=== PATIENT | male | born 1995 | race Caucasian/White ===

== ENCOUNTER 2017-04-09 14:59 | Emergency (ER) | payer MEDICAID ==
[2017-04-09 15:01] VITALS: BP 143/68; PULSE 79; RESP 13; TEMP 98.5; O2SAT 98
--- NOTE | 2017-04-09 15:16 | PD ---
Physical Exam Time Seen by Provider: 15:15 Narrative 21 year old male presents for evaluation of burning with urination and urethral discharge for 2 days. Thinks he has a UTI. Reports being sexually active but utilizes condom prophylaxis. Denies abdominal pain, fever, or chills. no other symptoms Data Data Last Documented VS Vital Signs Date Time Temp Pulse Resp B/P (MAP) Pulse Ox O2 Delivery O2 Flow Rate FiO2 04/09/17 16:52 04/09/17 15:01 98.5 79 13 98 Orders Orders Urinalysis - C+S If Indicated (04/09/17 15:14) Gc And Chlamydia Pcr (04/09/17 15:14) Azithromycin Powd Pack (Zithromax Powd P (04/09/17 16:30) Ceftriaxone Inj (Rocephin Inj) (04/09/17 16:30) Lidocaine 1% Inj (50 Ml) (Xylocaine 1% I (04/09/17 16:30) Urine Culture (04/09/17 15:50) Labs Laboratory Tests Test 04/09/17 15:50 Urine Color YELLOW Urine Turbidity HAZY Urine pH 7.0 Urine Specific [place] 1.024 Urine Protein NEG mg/dL Urine Glucose (UA) NEG mg/dL Urine Ketones NEG mg/dL Urine Occult Blood NEG Urine Nitrite NEG Urine Bilirubin NEG Urine Urobilinogen LESS THAN 2.0 MG/DL Urine Leukocyte Esterase LARGE Urine RBC 3 /hpf Urine WBC 63 /hpf Urine Mucus FEW /lpf Microscopic Urinalysis Comment CULTURE INDICATED Chlamydia trachomatis DNA (PCR) DETECTED Neisseria gonorrhoeae DNA (PCR) DETECTED MDM Medical Record Reviewed: Yes Supervised Visit with ALFONZO: No Scripts No Active Prescriptions or Reported Meds Condition: Alley Quiroz Apr 09, 2017 15:16
--- NOTE | 2017-04-09 16:19 | PD ---
HPI Chief Complaint: Complaint Time Seen by Provider: 16:12 Travel History International Travel<30 days: No Contact w/Intl Traveler<30days: No Traveled to known affect area: No History of Present Illness HPI 21-year-old male presents for evaluation of dysuria and urethral discharge. 2 day duration. The discharge is yellow. Burning sensation when he urinates. No alleviating factors. He is sexually active with one female partner for the past year and he reports that he uses condoms. Denies testicular or scrotal pain, abdominal pain, flank pain, fevers or chills. No other complaints. PFSH Past Medical History Diminished Hearing: No Social History Alcohol Use: No Tobacco Use: No Substance Use: No Allergies-Medications (Allergen,Severity, Reaction): Coded Allergies: No Known Allergies (Verified , 06/16/15) Reported Meds & Prescriptions Reported Meds & Active Scripts Active No Active Prescriptions or Reported Medications Review of Systems Except as stated in HPI: all other systems reviewed are Neg Physical Exam Narrative GENERAL: Well-nourished male in no acute distress SKIN: Warm and dry. HEAD: Atraumatic. Normocephalic. EYES: Pupils equal and round. No scleral icterus. No injection or drainage. ENT: No nasal bleeding or discharge. Mucous membranes pink and moist. NECK: Trachea midline. No JVD. CARDIOVASCULAR: Regular rate and rhythm. No murmur appreciated. RESPIRATORY: No accessory muscle use. Clear to auscultation. Breath sounds equal bilaterally. GASTROINTESTINAL: Abdomen soft, non-tender, nondistended. Hepatic and splenic margins not palpable. examination reveals yellow discharge from the urethra. Data Data Last Documented VS Vital Signs Date Time Temp Pulse Resp B/P (MAP) Pulse Ox O2 Delivery O2 Flow Rate FiO2 04/09/17 15:01 98.5 79 13 143/68 (93) 98 Orders Orders Urinalysis - C+S If Indicated (04/09/17 15:14) Gc And Chlamydia Pcr (04/09/17 15:14) Azithromycin Powd Pack (Zithromax Powd P (04/09/17 16:30) Ceftriaxone Inj (Rocephin Inj) (04/09/17 16:30) Lidocaine 1% Inj (50 Ml) (Xylocaine 1% I (04/09/17 16:30) Urine Culture (10/2/17 15:50) Labs Laboratory Tests Test 04/09/17 15:50 Urine Color YELLOW Urine Turbidity HAZY Urine pH 7.0 Urine Specific [place] 1.024 Urine Protein NEG mg/dL Urine Glucose (UA) NEG mg/dL Urine Ketones NEG mg/dL Urine Occult Blood NEG Urine Nitrite NEG Urine Bilirubin NEG Urine Urobilinogen LESS THAN 2.0 MG/DL Urine Leukocyte Esterase LARGE Urine RBC 3 /hpf Urine WBC 63 /hpf Urine Mucus FEW /lpf Microscopic Urinalysis Comment CULTURE INDICATED MDM Medical Decision Making Medical Screen Exam Complete: Yes Emergency Medical Condition: Yes Medical Record Reviewed: Yes Differential Diagnosis Gonococcal urethritis versus chlamydial urethritis versus chemical urethritis versus cystitis Narrative Course Examination is consistent with urethritis which is most likely gonococcal or chlamydial. Empirically the patient is being given Rocephin and azithromycin pending GC results. He is stable for discharge. Diagnosis Primary Impression: Urethritis Referrals: [facility]. Additional Instructions: Have all partners tested and treated for STDs at the health department or primary care office. No sexual contact until all partners have been tested and treated. Med/Other Pt SpecificInfo: No Change to Meds Scripts No Active Prescriptions or Reported Meds Disposition: 01 DISCHARGE HOME Condition: Stable Nain Emmanuel Apr 09, 2017 16:19
[2017-04-09 16:22] LABS: BLOOD, URINE NEG (NEG); COMMENT (UR) CULTURE INDICATED; CULTURE IF INDICATED CULTURE INDICATED; GLUCOSE,URINE NEG (NEG); KETONE, URINE NEG (NEG); MUCUS URINE FEW /lpf (OCC); NITRITE,URINE NEG (NEG); URINE COLOR YELLOW (YELLW/STRAW)
[2017-04-09] MEDS ORDERED: LIDOCAINE HCL 1% 50 ML VIAL XX ONE (16:30)
[2017-04-09] MEDS ORDERED: cefTRIAXone 250 MG VIAL IM ONE (16:30)
[2017-04-09] MEDS ORDERED: AZITHROMYCIN PWD FOR SUSP 1 GM PACKET PO ONE (16:30)
[2017-04-09 18:36] LABS: CHLAMYDIA PCR DETECTED (NOT DETECT); NEISSERIA PCR DETECTED (NOT DETECT)
== END 2017-04-09 16:52 | disposition home or self-care (01) ==
LOC: NEPK 14:59
DX: N34.2 Other urethritis (principal)
CPT/HCPCS: 81001; 87086; 87491; 87591; 96372; 99284; J0696

== ENCOUNTER 2017-04-12 23:25 | Emergency (ER) | payer MEDICAID ==
[~2017-04-12] VITALS: Ht 188 cm; Wt 91.2 kg
[2017-04-12 23:26] VITALS: BP 140/71; PULSE 76; RESP 16; TEMP 98.4; O2SAT 97
--- NOTE | 2017-04-13 00:12 | PD ---
HPI Chief Complaint: GI Complaint Time Seen by Provider: 00:02 Travel History International Travel<30 days: No Contact w/Intl Traveler<30days: No Traveled to known affect area: No History of Present Illness HPI 21-year-old male here for evaluation of noticing worms in his stool today. He describes somewhat long/round/whitish worms in clumps. He states they did not appear to be alive. He denies rectal pain or itching. No abdominal pain. No nausea or vomiting. He has noticed some intermittent right-sided headache over the last few days. Right now he states it is mild. PFSH Past Medical History Heart Rhythm Problems: Yes (heart murmor as a child) Diminished Hearing: No Immunizations Current: Yes Tetanus Vaccination: < 5 Years Influenza Vaccination: No Past Surgical History Surgical History: No Previous Surgery Social History Alcohol Use: No Tobacco Use: Yes (1 black and mild daily) Substance Use: No Allergies-Medications (Allergen,Severity, Reaction): Coded Allergies: No Known Allergies (Verified , 06/16/15) Reported Meds & Prescriptions Reported Meds & Active Scripts Active No Active Prescriptions or Reported Medications Review of Systems Except as stated in HPI: all other systems reviewed are Neg Physical Exam Narrative GENERAL: Well-developed, well-nourished, comfortable, no apparent distress. SKIN: Focused skin assessment warm/dry. No rash. HEAD: Atraumatic. Normocephalic. EYES: Pupils equal and round. No scleral icterus. No injection or drainage. ENT: Mucous membranes pink and moist. CARDIOVASCULAR: Regular rate and rhythm. RESPIRATORY: No accessory muscle use. Clear to auscultation. Breath sounds equal bilaterally. GASTROINTESTINAL: Abdomen soft, non-tender, nondistended. RECTUM: Normal exam. No masses, no fissures, no hemorrhoids. No worms. MUSCULOSKELETAL: No obvious deformities. No clubbing. No cyanosis. No edema. NEUROLOGICAL: Awake and alert. No obvious cranial nerve deficits. Motor grossly within normal limits. Normal speech. PSYCHIATRIC: Appropriate mood and affect; insight and judgment normal. Data Data Last Documented VS Vital Signs Date Time Temp Pulse Resp B/P (MAP) Pulse Ox O2 Delivery O2 Flow Rate FiO2 04/12/17 23:26 98.4 76 16 140/71 (94) 97 Room Air MDM Medical Decision Making Medical Screen Exam Complete: Yes Emergency Medical Condition: Yes Differential Diagnosis Pinworms, round worms Narrative Course Vital signs are normal. Abdominal exam is benign. Rectal exam is normal. Patient produced a stool sample and there are no apparent worms. Plan at this point is to give him a prescription for Mebendazole. PMD follow-up this week. He was informed on when to return to the emergency department. He verbalizes understanding and agreement with plan. Diagnosis Primary Impression: Pinworms Referrals: [facility] 3 days Additional Instructions: Follow-up with a primary care physician this week. Take medication as prescribed. Return to the emergency department for worsening symptoms or any other concerns. Scripts Mebendazole (Emverm) 100 Mg Chew 400 MG PO ONCE for Worms, #1 TAB 0 Refills Prov: Jam Mariscal MD 04/13/17 Mebendazole (Emverm) 100 Mg Chew 400 MG PO ONCE for Worms, #1 TAB 0 Refills Prov: Jam Mariscal MD 04/13/17 Disposition: 01 DISCHARGE HOME Condition: Stable Jam Mariscal MD Apr 13, 2017 00:12
[2017-04-13] MEDS ORDERED: MEBE1CHW14 PO (00:20)
== END 2017-04-13 00:29 | disposition home or self-care (01) ==
LOC: NEPD 23:25
DX: B80 Enterobiasis (principal); R51 Headache; Z72.0 Tobacco use
CPT/HCPCS: 99283